=== PATIENT | male | born 1950 | race Hispanic/Latino ===

== ENCOUNTER → 2025-08-02 | Day surgery (SDC) | payer OTHER ==
[2025-07-29 11:49] LABS: BASOPHILS % 0.7 % (0.0-1.0); EOSINOPHILS % 0.5 % (0.0-6.0); LYMPHOCYTES % 33.8 % (18.0-39.1); MONOCYTES % 24.2 % (4.4-11.3); NEUTROPHILS % 40.6 % (38.7-80.0); RED CELL DISTRIBUTION WIDTH 14.0 % (11.7-14.4)
[2025-07-29 15:08] LABS: BASOPHILS % (MANUAL) 1 % (0-1.5); LYMPHOCYTES % (MANUAL) 26 % (19-48); MONOCYTES % (MANUAL) 8 % (3.4-9.0); NEUTROPHILS % (MANUAL) 56 % (40-74); PLATELET ESTIMATE ADEQUATE; PLATELET MORPHOLOGY COMMENT NORMAL; RBC MORPHOLOGY COMMENT NORMAL; REACTIVE LYMPHOCYTES 9
[~2025-08-02] MED LIST: ALBUTEROL/IPRATROPIUM 3 ML NEB ONE; ARTIFICIAL TEAR15 M5 OU; BENZONATATE100 MG PO; BISACODYL5 MG PO; CITALOPRAM HBR20 MG PO; FLONASE ALLERG9.9 ML INH; HYDROCHLOROTHIA25 MG PO; LACTATED RINGER'S 1,000 ML ONE; LEVOTHYROXINE50 MCG PO; LIDOCAINE HCL 2% LOCAL INJ 5 ML SDV VIAL INJ ONE; LIPITOR20 MG PO; LORATADINE10 MG PO; LOSARTAN POTASS25 MG PO; MONTELUKAST SOD10 MG PO; NYSTATIN100000 UNI PO; NYSTATIN15 GM TOP; OMEPRAZOLE40 MG PO; ONDANSETRON ODT4 MG PO; POTASSIUM CHLO10 ME1 PO; PRAZOSIN HCL2 MG PO; PROPOFOL IV EMULSION 50 ML IV ONE; VITAMIN D310 MCG PO; WELLBUTRIN XL300 MG PO
[2025-08-02 16:00] VITALS: BP 112/74; PULSE 88; RESP 16; TEMP 97.6; O2SAT 96
== END | disposition home or self-care (01) ==
LOC: OR 09:00
PROVIDERS: ATTEND Internal Medicine Gastroenterology
DX: K29.70 Gastritis, unspecified, without bleeding (principal); D12.0 Benign neoplasm of cecum; D12.8 Benign neoplasm of rectum; D12.3 Benign neoplasm of transverse colon; D12.4 Benign neoplasm of descending colon; K29.80 Duodenitis without bleeding; K31.89 Other diseases of stomach and duodenum; K21.9 Gastro-esophageal reflux disease without esophagitis; R13.10 Dysphagia, unspecified; K44.9 Diaphragmatic hernia without obstruction or gangrene; K59.00 Constipation, unspecified; K57.30 Diverticulosis of large intestine without perforation or abscess without bleeding; K64.1 Second degree hemorrhoids; G47.33 Obstructive sleep apnea (adult) (pediatric); I10 Essential (primary) hypertension; E78.5 Hyperlipidemia, unspecified; J45.909 Unspecified asthma, uncomplicated; E66.01 Morbid (severe) obesity due to excess calories; E03.9 Hypothyroidism, unspecified; F43.10 Post-traumatic stress disorder, unspecified; F41.9 Anxiety disorder, unspecified; F32.A Depression, unspecified; Z01.810 Encounter for preprocedural cardiovascular examination; Z01.812 Encounter for preprocedural laboratory examination; Z79.899 Other long term (current) drug therapy; Z68.30 Body mass index [BMI] 30.0-30.9, adult
CPT/HCPCS: 36415; 43239; 45384; 45385; 85025; 93005; J2003; J2704; J7121